=== PATIENT | female | born 1990 | race Caucasian/White ===

== ENCOUNTER → 2017-09-26 09:47 | Outpatient (CLI) | payer OTHER, SELFPAY | PROVIDERS: Visit Provider Nurse Practitioner Women's Health | DX: Z83.2 Family history of diseases of the blood and blood-forming organs and certain disorders involving the immune mechanism (principal) | CPT/HCPCS: 36415; 81241 ==

== ENCOUNTER → 2017-09-27 10:30 | Outpatient (CLI) | payer OTHER, SELFPAY ==
[2017-10-01 08:06] LABS: HPV Reflexed? NOT INDICATED
== END ==
PROVIDERS: Visit Provider Nurse Practitioner Women's Health
DX: Z12.4 Encounter for screening for malignant neoplasm of cervix (principal)
CPT/HCPCS: 88175; G0145

== ENCOUNTER 2018-04-17 12:03 | Emergency (ER) | payer OTHER, SELFPAY ==
[2018-04-17 12:05] VITALS: BP 102/68; PULSE 106; RESP 18; TEMP 36.6; O2SAT 98; BMI 19.3
--- NOTE | 2018-04-17 12:22 | ED.VISSUMM ---
- ER Visit Summary Date of Service: 04/17/18 Chief Complaint: Fever, sore throat neck pain History of Present Illness: The patient is a 27 F who was sent to the emergency room for evaluation for painful lymph nodes. She was seen 2-1/2 weeks ago for similar presentation and rapid strep and culture negative. She stated that time she had white spots. She denies runny nose, congestion, postnasal drainage. She denies cough. She had a documented temperature 102.5 last evening. She denies change in voice. She denies any abdominal pain. She denies rash. Physical Examination: Vital signs are marked for heart rate of 106. Head is atraumatic normocephalic. Pupils are equal round reactive. Extraocular muscles are intact. TMs are pearly white with landmarks noted. Nares patent with no drainage. Posterior pharynx without erythema or exudate. Uvula is midline. There is no dysphonia or dysphasia. Trachea is midline. There is no stridor with auscultation of the neck. Bilateral anterior cervical lymphadenopathy noted. Heart is regular without murmur, gallop or rub. S1 and S2 are normal. Lungs are clear to auscultation with good movement of air bilaterally. No dermatologic rash or lesions noted. She is alert and oriented ?3. Test Results: None Emergency Department Course and Treatment: Patient was informed she has cervical adenitis which is an inflation lymph nodes her neck. She has documented temperature and negative strep will not repeat. Will treat with macrolide, azithromycin. Treatment Plan: Antibiotics Disposition: Discharged to home Impression: Fever and cervical adenitis This note was generated with [employer] dictation software. It may contain incorrect words, spelling, and punctuation that were not noted in review of the chart prior to signing ED Disposition - Plan for ED Patient: Disposition: Home or Assisted Living Chief Complaint: Other, Pain/Inj Instructions: ED Cervical Adenitis Abx Tx Prescriptions: Azithromycin [Zithromax Z-Armani] 250 mg PO UD #1 box Additional Instructions: Your prescription was sent to [facility] pharmacy; your designated pharmacy
== END 2018-04-17 12:38 | disposition home or self-care (01) ==
LOC: ED 12:33
PROVIDERS: Emergency Provider Emergency Medicine
DX: R50.9 Fever, unspecified (principal); I88.9 Nonspecific lymphadenitis, unspecified; J02.9 Acute pharyngitis, unspecified
CPT/HCPCS: 99282